=== PATIENT | female | born 1945 | race Native Hawaiian/Other Pacific Islander ===

== ENCOUNTER 2016-04-30 09:53 | Observation (INO) | payer OTHER ==
[~2016-04-30] VITALS: Ht 160 cm; Wt 83.5 kg
[~2016-04-30 09:53] MED LIST: ALLEGRA ALRG180 M1 PO; ASPIRIN LOW81 MG PO; BYSTOLIC5 MG PO; CIPRO500 MG PO; CLARITIN10 MG PO; EZET10TA13 PO; FLUT0.05 NAS; HYZAAR1 TA2 PO; LEVAQUIN500 MG OR; LEVO0.0723 PO; MEDROL DOSEPAK4 MG OR; METFTAB PO; METO50TA63 PO; NITR0.2D21 TD; NITROGLYCER0.4 MG/HR TD; NITROSTAT0.4 MG SL; OMEPRAZOLE20 M1 PO; PRAS10TA PO; RANO500T PO; TRAM50TA PO; ZOFRAN8 MG OR
[2016-04-30 11:11] VITALS: BP 114/65; TEMP 97.6; Ht 160 cm; Wt 83.5 kg
[2016-04-30 12:00] VITALS: BP 114/65; TEMP 97.6
[2016-04-30 14:10] LABS: PLATELET COUNT 263 K/uL (152-353)
[2016-04-30 14:23] LABS: POTASSIUM 3.5 mmol/L (3.6-5.2); SODIUM 129 mmol/L (136-145)
[2016-04-30 16:00] VITALS: BP 114/65; TEMP 97.1
[2016-04-30 20:00] VITALS: BP 148/64; TEMP 98.7
[2016-05-01] VITALS: BP 148/68; TEMP 98.6
[2016-05-01] MEDS ORDERED: CLARITIN10 MG PO (03:35)
[2016-05-01] MEDS ORDERED: TRAM50TA PO (03:36)
[2016-05-01] MEDS ORDERED: SIMV20TA2 PO (03:37)
[2016-05-01] MEDS ORDERED: CIPROFLOXACIN500 M1 PO (03:39)
[2016-05-01 05:25] LABS: PLATELET COUNT 239 K/uL (152-353)
[2016-05-01 05:28] LABS: POTASSIUM 3.1 mmol/L (3.6-5.2); SODIUM 129 mmol/L (136-145)
[2016-05-01 05:55] VITALS: BP 169/62; TEMP 98.4
[2016-05-01 08:00] VITALS: BP 102/46; TEMP 97.8
[2016-05-01 11:53] VITALS: BP 133/55; TEMP 98.4
[2016-06-30] MEDS ORDERED: METFTAB PO (19:39)
[2016-06-30] MEDS ORDERED: DYMISTA1 SPR (19:40)
[2016-07-01] MEDS ORDERED: DOCU100C10 PO (04:56)
[2016-07-01] MEDS ORDERED: [UNRECOGNIZED DRUG - OTHER] PO (04:58)
== END 2016-05-01 14:57 | disposition home or self-care (01) ==
LOC: MED/SURG 09:53
PROVIDERS: Emergency Medicine; ADMIT Internal Medicine
DX: K56.41 Fecal impaction (principal); R10.84 Generalized abdominal pain; E87.6 Hypokalemia
CPT/HCPCS: 36415; 36591; 80048; 80053; 81000; 82150; 82948; 83690; 83735; 85027; 85651; 86318; 96360; 96361; 99220; G0378; G0379; J3475; Q9963

== ENCOUNTER 2016-07-16 12:14 | Outpatient (CLI) | payer OTHER ==
[~2016-07-16 12:14] MED LIST changes: +CIPROFLOXACIN500 M1 PO; +DOCU100C10 PO; +DYMISTA1 SPR; +SIMV20TA2 PO; +[UNRECOGNIZED DRUG - OTHER] PO
== END 2016-07-16 19:49 | disposition home or self-care (01) ==
LOC: NM 12:14
DX: R68.81 Early satiety (principal)
CPT/HCPCS: A9541

== ENCOUNTER 2016-07-28 09:22 | Outpatient (CLI) | payer OTHER | END 2016-07-28 19:18 | disposition home or self-care (01) | LOC: RAD 09:22 | DX: R68.81 Early satiety (principal) ==

== ENCOUNTER 2016-10-26 08:56 | Outpatient (CLI) | payer OTHER | END 2016-10-26 10:00 | disposition home or self-care (01) | LOC: LABW 08:56 | PROVIDERS: Internal Medicine Cardiovascular Disease | DX: E78.4 Other hyperlipidemia (principal); I51.9 Heart disease, unspecified; Z79.899 Other long term (current) drug therapy; Z51.81 Encounter for therapeutic drug level monitoring; E11.9 Type 2 diabetes mellitus without complications | CPT/HCPCS: 36415; 80061; 83036 ==

== ENCOUNTER 2017-02-08 09:15 | Outpatient (CLI) | payer OTHER ==
[2017-02-08 09:49] LABS: PLATELET COUNT 269 K/uL (152-353)
[2017-02-08 09:52] LABS: POTASSIUM 3.9 mmol/L (3.6-5.2); SODIUM 135 mmol/L (136-145)
== END 2017-02-08 19:30 | disposition home or self-care (01) ==
LOC: LABW 09:15
PROVIDERS: Internal Medicine
DX: I51.89 Other ill-defined heart diseases (principal); Z79.899 Other long term (current) drug therapy; Z51.81 Encounter for therapeutic drug level monitoring; E11.9 Type 2 diabetes mellitus without complications
CPT/HCPCS: 36415; 80053; 84439; 84443; 85027

== ENCOUNTER 2017-04-28 11:49 | Outpatient (CLI) | payer OTHER | END 2017-04-28 19:39 | disposition home or self-care (01) | LOC: LABW 11:49 → RAD 11:49 → LABW 19:39 | PROVIDERS: Internal Medicine Cardiovascular Disease | DX: R09.1 Pleurisy (principal); E78.4 Other hyperlipidemia | CPT/HCPCS: 36415; 80061 ==

== ENCOUNTER 2017-06-16 08:40 | Outpatient (CLI) | payer OTHER | END 2017-06-16 21:39 | disposition home or self-care (01) | LOC: LABW 08:40 | DX: E11.9 Type 2 diabetes mellitus without complications (principal) | CPT/HCPCS: 36415; 83036 ==

== ENCOUNTER 2017-07-27 15:29 | Outpatient (CLI) | payer OTHER | END 2017-07-27 21:59 | disposition home or self-care (01) | LOC: US 15:29 | DX: M79.605 Pain in left leg (principal) ==

== ENCOUNTER 2017-08-05 13:55 | Outpatient (CLI) | payer OTHER | END 2017-08-05 22:06 | disposition home or self-care (01) | LOC: MRI 13:55 | DX: M71.22 Synovial cyst of popliteal space [Baker], left knee (principal) | CPT/HCPCS: 36415; 82565; 84520; A9576 ==

== ENCOUNTER 2017-09-09 10:55 | Outpatient (CLI) | payer OTHER ==
[2017-09-09 12:56] LABS: PLATELET COUNT 298 K/uL (152-353)
== END 2017-09-09 19:11 | disposition home or self-care (01) ==
LOC: LABW 10:55
PROVIDERS: Physician Assistant
DX: R10.13 Epigastric pain (principal)
CPT/HCPCS: 36415; 82150; 83690; 85027; 86318

== ENCOUNTER 2017-10-26 13:41 | Outpatient (CLI) | payer OTHER | END 2017-10-26 19:11 | disposition home or self-care (01) | LOC: LAB 13:41 | DX: N30.01 Acute cystitis with hematuria (principal) | CPT/HCPCS: 87077; 87086; 87088; 87186 ==

== ENCOUNTER 2017-11-04 09:20 | Outpatient (CLI) | payer OTHER | END 2017-11-04 22:48 | disposition home or self-care (01) | LOC: US 09:20 | DX: R10.13 Epigastric pain (principal); R10.11 Right upper quadrant pain; M54.2 Cervicalgia ==

== ENCOUNTER 2017-11-10 08:09 | Outpatient (CLI) | payer OTHER | END 2017-11-10 22:13 | disposition home or self-care (01) | LOC: RAD 08:09 | DX: R10.13 Epigastric pain (principal); R10.11 Right upper quadrant pain; M54.2 Cervicalgia ==

== ENCOUNTER 2017-11-29 08:55 | Outpatient (CLI) | payer OTHER ==
[2017-11-29 10:12] LABS: PLATELET COUNT 307 K/uL (152-353)
[2017-11-29 10:31] LABS: POTASSIUM 4.3 mmol/L (3.6-5.2)
== END 2017-11-29 21:03 | disposition home or self-care (01) ==
LOC: LABW 08:55
PROVIDERS: Internal Medicine
DX: R53.82 Chronic fatigue, unspecified (principal); R06.09 Other forms of dyspnea; E78.00 Pure hypercholesterolemia, unspecified
CPT/HCPCS: 36415; 80053; 80061; 83735; 83880; 84439; 84443; 85027

== ENCOUNTER 2017-12-08 08:54 | Outpatient (CLI) | payer OTHER | END 2017-12-08 19:16 | disposition home or self-care (01) | LOC: RESP 08:54 | DX: I25.10 Atherosclerotic heart disease of native coronary artery without angina pectoris (principal) | CPT/HCPCS: 93306 ==

== ENCOUNTER 2017-12-14 10:31 | Outpatient (CLI) | payer OTHER | END 2017-12-14 23:51 | disposition home or self-care (01) | LOC: RAD 10:31 | DX: R06.02 Shortness of breath (principal) ==

== ENCOUNTER 2018-01-26 09:00 | Outpatient (CLI) | payer OTHER ==
[2018-01-26 09:27] LABS: PLATELET COUNT 384 K/uL (152-353)
[2018-01-26 09:28] LABS: POTASSIUM 3.8 mmol/L (3.6-5.2)
== END 2018-01-26 18:50 | disposition home or self-care (01) ==
LOC: LABW 09:00
PROVIDERS: Internal Medicine
DX: I10 Essential (primary) hypertension (principal)
CPT/HCPCS: 36415; 80053; 85027

== ENCOUNTER 2018-02-22 09:21 | Outpatient (CLI) | payer OTHER ==
[2018-02-22 09:43] LABS: PLATELET COUNT 285 K/uL (152-353)
[2018-02-22 09:47] LABS: POTASSIUM 3.9 mmol/L (3.6-5.2)
== END 2018-02-22 22:15 | disposition home or self-care (01) ==
LOC: LABW 09:21
PROVIDERS: Internal Medicine
DX: D64.9 Anemia, unspecified (principal)
CPT/HCPCS: 36415; 80053; 85027

== ENCOUNTER 2018-03-09 12:31 | Outpatient (CLI) | payer OTHER ==
[2018-03-09 12:55] LABS: POTASSIUM 3.8 mmol/L (3.6-5.2)
== END 2018-03-09 19:37 | disposition home or self-care (01) ==
LOC: LABW 12:31
PROVIDERS: Internal Medicine Cardiovascular Disease
DX: R06.09 Other forms of dyspnea (principal); I10 Essential (primary) hypertension
CPT/HCPCS: 36415; 80048; 83880

== ENCOUNTER 2018-03-16 15:49 | Emergency (ER) | payer OTHER ==
[~2018-03-16] VITALS: Ht 157.5 cm; Wt 86.2 kg
[2018-03-16 16:43] LABS: PLATELET COUNT 358 K/uL (152-353)
[2018-03-16 16:51] LABS: SODIUM 124 mmol/L (136-145)
[2018-03-16 20:23] VITALS: BP 145/68; TEMP 97
== END 2018-03-16 20:25 | disposition home or self-care (01) ==
LOC: ED 15:49
PROVIDERS: Emergency Medicine
DX: R07.89 Other chest pain (principal); M48.02 Spinal stenosis, cervical region; I10 Essential (primary) hypertension
CPT/HCPCS: 36415; 80053; 82550; 82553; 84484; 85027; 93005; 99284

== ENCOUNTER 2018-03-21 17:03 | Outpatient (CLI) | payer OTHER | END 2018-03-21 20:39 | disposition home or self-care (01) | LOC: LAB 17:03 | DX: N39.0 Urinary tract infection, site not specified (principal) | CPT/HCPCS: 87077; 87086; 87088; 87186 ==

== ENCOUNTER 2018-04-03 14:01 | Outpatient (CLI) | payer OTHER | END 2018-04-03 19:06 | disposition home or self-care (01) | LOC: LABW 14:01 | DX: N39.0 Urinary tract infection, site not specified (principal) | CPT/HCPCS: 81000 ==

== ENCOUNTER 2018-04-21 12:57 | Outpatient (CLI) | payer OTHER | END 2018-04-21 22:33 | disposition home or self-care (01) | LOC: LAB 12:57 | DX: R30.0 Dysuria (principal) | CPT/HCPCS: 87077; 87086; 87088; 87186 ==

== ENCOUNTER 2018-07-14 09:42 | Outpatient (CLI) | payer OTHER | END 2018-07-14 20:45 | disposition home or self-care (01) | LOC: LABW 09:42 | PROVIDERS: Internal Medicine Cardiovascular Disease | DX: Z79.899 Other long term (current) drug therapy (principal) | CPT/HCPCS: 36415; 80061; 83036; 83880 ==

== ENCOUNTER 2018-10-13 14:29 | Outpatient (CLI) | payer OTHER ==
[2018-10-13 15:09] LABS: PLATELET COUNT 310 K/uL (152-353)
== END 2018-10-13 20:15 | disposition home or self-care (01) ==
LOC: LABW 14:29
PROVIDERS: Physician Assistant
DX: T14.8XXA Other injury of unspecified body region, initial encounter (principal); R53.82 Chronic fatigue, unspecified
CPT/HCPCS: 36415; 85027

== ENCOUNTER 2018-12-26 10:53 | Outpatient (CLI) | payer OTHER | END 2018-12-26 22:39 | disposition home or self-care (01) | LOC: MAMMO 10:53 | DX: Z12.31 Encounter for screening mammogram for malignant neoplasm of breast (principal) ==

== ENCOUNTER 2019-01-30 09:07 | Outpatient (CLI) | payer OTHER ==
[2019-01-30 09:29] LABS: PLATELET COUNT 297 K/uL (152-353)
[2019-01-30 10:10] LABS: POTASSIUM 3.5 mmol/L (3.6-5.2)
== END 2019-01-30 19:23 | disposition home or self-care (01) ==
LOC: LABW 09:07
PROVIDERS: Physician Assistant
DX: M54.5 Low back pain (principal); I10 Essential (primary) hypertension; E11.9 Type 2 diabetes mellitus without complications; I25.10 Atherosclerotic heart disease of native coronary artery without angina pectoris; E03.8 Other specified hypothyroidism
CPT/HCPCS: 36415; 80053; 80061; 82306; 83036; 84439; 84443; 85027

== ENCOUNTER 2019-03-08 13:57 | Outpatient (CLI) | payer OTHER | END 2019-03-08 20:15 | disposition home or self-care (01) | LOC: RAD 13:57 | DX: M54.5 Low back pain (principal); N95.8 Other specified menopausal and perimenopausal disorders ==

== ENCOUNTER 2019-06-05 15:16 | Emergency (ER) | payer OTHER ==
[~2019-06-05] VITALS: Ht 160 cm; Wt 83.5 kg
[2019-06-05 15:30] VITALS: TEMP 97.3
[2019-06-05 16:11] LABS: PLATELET COUNT 420 K/uL (152-353)
[2019-06-05 16:20] LABS: POTASSIUM 3.4 mmol/L (3.6-5.2); SODIUM 128 mmol/L (136-145)
[2019-06-05 19:30] VITALS: BP 145/61
== END 2019-06-05 19:43 | disposition home or self-care (01) ==
LOC: ED 15:16
PROVIDERS: Student in an Organized Health Care Education/Training Program
DX: J10.1 Influenza due to other identified influenza virus with other respiratory manifestations (principal); E86.0 Dehydration; E83.42 Hypomagnesemia; R06.2 Wheezing; Z96.652 Presence of left artificial knee joint; I25.10 Atherosclerotic heart disease of native coronary artery without angina pectoris; I44.7 Left bundle-branch block, unspecified
CPT/HCPCS: 36415; 80048; 83735; 83880; 84484; 85027; 85610; 85730; 87502; 93005; 94664; 96360; 96365; 96366; 96375; 99284; J2405; J2930; J3475

== ENCOUNTER 2019-06-26 14:12 | Outpatient (CLI) | payer OTHER ==
[~2019-06-26] VITALS: Ht 160 cm; Wt 75.7 kg
== END 2019-06-26 19:30 | disposition home or self-care (01) ==
LOC: INF 14:12
DX: E86.0 Dehydration (principal)
CPT/HCPCS: 96360; 96361; J3490

== ENCOUNTER 2019-09-19 10:19 | Outpatient (CLI) | payer OTHER ==
[2019-09-19 11:56] LABS: PLATELET COUNT 311 K/uL (152-353)
[2019-09-19 12:29] LABS: POTASSIUM 3.3 mmol/L (3.6-5.2)
== END 2019-09-19 19:10 | disposition home or self-care (01) ==
LOC: US 10:19
PROVIDERS: Internal Medicine Gastroenterology
DX: R10.13 Epigastric pain (principal)
CPT/HCPCS: 36415; 80053; 82150; 83690; 85027

== ENCOUNTER 2019-09-26 11:20 | Outpatient (CLI) | payer OTHER | END 2019-09-26 23:54 | disposition home or self-care (01) | LOC: RAD 11:20 → LAB 11:20 | DX: M54.5 Low back pain (principal); R30.0 Dysuria | CPT/HCPCS: 81000 ==

== ENCOUNTER 2019-11-07 08:59 | Outpatient (CLI) | payer OTHER ==
[2019-11-07 09:35] LABS: POTASSIUM 2.8 mmol/L (3.6-5.2)
[2019-11-07 09:49] LABS: PLATELET COUNT 272 K/uL (152-353)
== END 2019-11-07 19:05 | disposition home or self-care (01) ==
LOC: LAB 08:59
PROVIDERS: Internal Medicine Gastroenterology
DX: D64.9 Anemia, unspecified (principal)
CPT/HCPCS: 80048; 82533; 82607; 82728; 82746; 83550; 84443; 85027

== ENCOUNTER 2019-11-08 17:15 | Inpatient (IN) | payer OTHER ==
[~2019-11-08] VITALS: Ht 160 cm; Wt 66.9 kg
[2019-11-08 18:14] LABS: PLATELET COUNT 283 K/uL (152-353)
[2019-11-08 20:00] VITALS: BP 149/88; TEMP 98.4
[2019-11-09] VITALS (7 sets, daily range): BP systolic 138–166; BP diastolic 55–88; TEMP 97.8–98.9; Ht 160 cm; Wt 66.9 kg
[2019-11-09] MEDS ORDERED: CLOP75TA2 PO (01:54)
[2019-11-09] MEDS ORDERED: OXYC5TAB53 PO (01:59)
[2019-11-09 05:55] LABS: POTASSIUM 3.9 mmol/L (3.6-5.2)
[2019-11-10 00:01] VITALS: BP 176/84; TEMP 98.7
[2019-11-10 03:53] VITALS: BP 153/62; TEMP 97.7
[2019-11-10 08:00] VITALS: BP 158/66; TEMP 98.5
[2019-11-10 12:00] VITALS: BP 147/54; TEMP 98.3
[2019-11-10 16:00] VITALS: BP 167/95; TEMP 97.3
[2019-11-10 20:00] VITALS: BP 125/71; TEMP 98.5
[2019-11-11] VITALS: BP 127/58; TEMP 98.1
[2019-11-11 04:00] VITALS: BP 110/55; TEMP 98.5
[2019-11-11 08:00] VITALS: BP 151/58; TEMP 98.1
[2019-11-11 12:00] VITALS: BP 151/82; TEMP 98.5
[2019-11-11] MEDS ORDERED: PANTOPRAZOLE 40MG TA PO (14:24)
[2019-11-11] MEDS ORDERED: REGLAN 10MG TAB PO (14:25)
== END 2019-11-11 16:00 | disposition home or self-care (01) | DRG 392 ==
LOC: MED/SURG 17:15
PROVIDERS: Internal Medicine; ADMIT Internal Medicine
DX: R11.2 Nausea with vomiting, unspecified (principal); E11.9 Type 2 diabetes mellitus without complications; I25.10 Atherosclerotic heart disease of native coronary artery without angina pectoris; E03.8 Other specified hypothyroidism; F52.31 Female orgasmic disorder; R63.4 Abnormal weight loss
CPT/HCPCS: 36415; 80048; 80053; 81000; 81002; 82550; 84443; 84484; 85027; A9541; J1650; J2405; J3490; Q9963

== ENCOUNTER 2020-06-21 12:06 | Outpatient (CLI) | payer OTHER ==
[~2020-06-21 12:06] MED LIST changes: +CLOP75TA2 PO; +OXYC5TAB53 PO; +PANTOPRAZOLE 40MG TA PO; +REGLAN 10MG TAB PO
== END 2020-06-21 21:33 | disposition home or self-care (01) ==
LOC: LABW 12:06
PROVIDERS: ATTEND Internal Medicine
DX: Z01.84 Encounter for antibody response examination (principal)
CPT/HCPCS: 36415; 86769

== ENCOUNTER 2020-08-18 11:14 | Emergency (ER) | payer OTHER ==
[~2020-08-18] VITALS: Ht 160 cm; Wt 74.8 kg
[2020-08-18 11:20] VITALS: TEMP 98.1
[2020-08-18 12:00] LABS: PLATELET COUNT 241 K/uL (152-353)
[2020-08-18 12:25] LABS: PARTIAL THROMBOPLASTIN TIME 25.8 SECONDS (24.5-33.6)
[2020-08-18 12:27] LABS: POTASSIUM 4.2 mmol/L (3.6-5.2); SODIUM 138 mmol/L (136-145)
[2020-08-18 16:00] VITALS: BP 148/62
== END 2020-08-18 16:18 | disposition short-term general hospital (02) ==
LOC: ED 11:14
PROVIDERS: Hospitalist
DX: I20.8 Other forms of angina pectoris (principal); R07.89 Other chest pain; G45.8 Other transient cerebral ischemic attacks and related syndromes; Z03.818 Encounter for observation for suspected exposure to other biological agents ruled out
CPT/HCPCS: 36415; 80053; 82550; 83880; 84484; 85027; 85610; 85730; 87635; 93005; 99283; U0003

== ENCOUNTER 2020-08-27 15:00 | Inpatient (IN) | payer OTHER ==
[2020-08-28 11:16] LABS: PLATELET COUNT 237 K/uL (152-353)
[2020-08-28 11:41] LABS: POTASSIUM 3.7 mmol/L (3.6-5.2)
== END 2020-09-07 11:00 | disposition home or self-care (01) ==
LOC: PAVC 15:00
PROVIDERS: ADMIT Internal Medicine; ATTEND Internal Medicine
DX: I63.50 Cerebral infarction due to unspecified occlusion or stenosis of unspecified cerebral artery (principal); M62.81 Muscle weakness (generalized); R27.9 Unspecified lack of coordination; Z74.1 Need for assistance with personal care; R26.81 Unsteadiness on feet; R48.8 Other symbolic dysfunctions; I69.322 Dysarthria following cerebral infarction
CPT/HCPCS: 80053; 80061; 82306; 82607; 82728; 82746; 83036; 83540; 84443; 85027; 87081

== ENCOUNTER 2020-09-06 11:20 | Outpatient (CLI) | payer OTHER | END 2020-09-06 22:20 | disposition home or self-care (01) | LOC: RAD 11:20 | PROVIDERS: ATTEND Internal Medicine | DX: R93.7 Abnormal findings on diagnostic imaging of other parts of musculoskeletal system (principal); M79.602 Pain in left arm ==

== ENCOUNTER 2020-11-18 11:07 | Outpatient (CLI) | payer OTHER ==
[2020-11-18 11:39] LABS: PLATELET COUNT 242 K/uL (152-353)
== END 2020-11-18 22:41 | disposition home or self-care (01) ==
LOC: LAB 11:07
PROVIDERS: ATTEND Internal Medicine
DX: I11.0 Hypertensive heart disease with heart failure (principal); I50.20 Unspecified systolic (congestive) heart failure; E78.49 Other hyperlipidemia; I69.351 Hemiplegia and hemiparesis following cerebral infarction affecting right dominant side; I25.10 Atherosclerotic heart disease of native coronary artery without angina pectoris; K21.9 Gastro-esophageal reflux disease without esophagitis; Z79.899 Other long term (current) drug therapy; E03.8 Other specified hypothyroidism
CPT/HCPCS: 80053; 80061; 81000; 83036; 84439; 84443; 85027

== ENCOUNTER 2021-01-14 16:07 | Outpatient (CLI) | payer OTHER | END 2021-01-14 19:15 | disposition home or self-care (01) | LOC: LAB 16:07 | PROVIDERS: ATTEND Internal Medicine | DX: N39.0 Urinary tract infection, site not specified (principal) | CPT/HCPCS: 81000; 87077; 87086; 87088; 87186 ==

== ENCOUNTER 2021-02-19 12:37 | Outpatient (CLI) | payer OTHER | END 2021-02-19 22:38 | disposition home or self-care (01) | LOC: LABW 12:37 | PROVIDERS: ATTEND Specialist | DX: I63.9 Cerebral infarction, unspecified (principal) | CPT/HCPCS: 36415; 81240; 81241; 83090; 85240; 85300; 85301; 85303; 85306; 85652; 86038; 86147 ==

== ENCOUNTER 2021-08-10 14:31 | Outpatient (CLI) | payer OTHER ==
[2021-08-10 15:01] LABS: PLATELET COUNT 251 K/uL (152-353)
[2021-08-10 15:20] LABS: POTASSIUM 4.6 mmol/L (3.6-5.2)
== END 2021-08-10 20:37 | disposition home or self-care (01) ==
LOC: LABW 14:31
PROVIDERS: ATTEND Internal Medicine Cardiovascular Disease
DX: I50.9 Heart failure, unspecified (principal); E78.49 Other hyperlipidemia; R53.83 Other fatigue
CPT/HCPCS: 36415; 80053; 83880; 84443; 85027

== ENCOUNTER 2021-08-26 11:04 | Outpatient (CLI) | payer OTHER ==
[2021-08-26 11:20] LABS: PLATELET COUNT 231 K/uL (152-353)
[2021-08-26 12:05] LABS: POTASSIUM 4.3 mmol/L (3.6-5.2)
== END 2021-08-26 18:58 | disposition home or self-care (01) ==
LOC: LABW 11:04
PROVIDERS: ATTEND Internal Medicine Cardiovascular Disease
DX: I50.9 Heart failure, unspecified (principal); E78.49 Other hyperlipidemia; R53.83 Other fatigue
CPT/HCPCS: 36415; 80053; 80061; 83880; 84443; 85027

== ENCOUNTER 2022-02-10 14:40 | Outpatient (CLI) | payer OTHER ==
[2022-02-10 15:05] LABS: PLATELET COUNT 240 K/uL (152-353)
[2022-02-10 15:20] LABS: POTASSIUM 4.4 mmol/L (3.6-5.2)
== END 2022-02-10 18:59 | disposition home or self-care (01) ==
LOC: LAB 14:40
PROVIDERS: ATTEND Internal Medicine
DX: Z00.00 Encounter for general adult medical examination without abnormal findings (principal); E78.49 Other hyperlipidemia; Z13.820 Encounter for screening for osteoporosis; E55.9 Vitamin D deficiency, unspecified; I50.9 Heart failure, unspecified; R82.998 Other abnormal findings in urine
CPT/HCPCS: 80053; 80061; 81000; 82306; 84439; 84443; 85027; 87077; 87086; 87088; 87186

== ENCOUNTER 2022-02-24 09:50 | Outpatient (CLI) | payer OTHER | END 2022-02-24 19:15 | disposition home or self-care (01) | LOC: MAMMO 09:50 | PROVIDERS: ATTEND Internal Medicine | DX: Z12.31 Encounter for screening mammogram for malignant neoplasm of breast (principal); Z13.820 Encounter for screening for osteoporosis; N95.8 Other specified menopausal and perimenopausal disorders ==

== ENCOUNTER 2022-04-29 15:57 | Outpatient (CLI) | payer OTHER | END 2022-04-29 19:36 | disposition home or self-care (01) | LOC: LAB 15:57 | PROVIDERS: ATTEND Internal Medicine | DX: N39.0 Urinary tract infection, site not specified (principal) | CPT/HCPCS: 81000; 87077; 87086; 87088; 87186 ==

== ENCOUNTER 2022-07-15 14:11 | Outpatient (CLI) | payer OTHER ==
[2022-07-15 15:04] LABS: POTASSIUM 3.5 mmol/L (3.6-5.2)
== END 2022-07-15 19:28 | disposition home or self-care (01) ==
LOC: LABW 14:11 → RAD 14:11 → LABW 19:28
PROVIDERS: ATTEND Internal Medicine Cardiovascular Disease
DX: Z79.899 Other long term (current) drug therapy (principal); R06.02 Shortness of breath
CPT/HCPCS: 36415; 80048; 83880

== ENCOUNTER 2022-08-07 12:19 | Outpatient (CLI) | payer OTHER | END 2022-08-07 19:17 | disposition home or self-care (01) | LOC: LAB 12:19 | PROVIDERS: ATTEND Internal Medicine | DX: N39.0 Urinary tract infection, site not specified (principal) | CPT/HCPCS: 87077; 87086; 87088; 87186 ==

== ENCOUNTER 2022-08-07 12:22 | Outpatient (CLI) | payer OTHER | END 2022-08-07 19:17 | disposition home or self-care (01) | LOC: RAD 12:22 | PROVIDERS: ATTEND Internal Medicine | DX: R09.1 Pleurisy (principal) ==